=== PATIENT | male | born 1935 | race Caucasian/White ===

== ENCOUNTER 2022-10-19 08:48 | Inpatient (IN) | payer OTHER ==
[~2022-10-19] VITALS: Ht 165.1 cm; Wt 86.6 kg
--- NOTE | 2022-10-19 08:49 | NUR ---
PATIENT BIB [facility]. PATIENT BEGAN SLURRING SPEECH DURING PEDICURE & STAFF CALLED 911. PATIENT CURRENTLY HAS CLEAR SPEECH, DENIES HEADACHE. SBP >220 IN FIELD. MED HX DM, HTN, HLD, GOUT, ANEMIA. BP 217/123. BLOOD SUGAR 208. NKA.
[2022-10-19 08:52] VITALS: BP_SYST 255; PULSE 75; RESP 20; TEMP 98; O2SAT 96
--- NOTE | 2022-10-19 08:55 | NUR ---
DR CARLSON AT BEDSIDE
[2022-10-19] MEDS ORDERED: iohexoL 350 mgI/mL, 100 ML INFUS..BTL IV ONE (09:14)
[2022-10-19] MEDS ORDERED: hydrALAZINE HCL 20 MG/ML VIAL IVP ONE (09:15)
[2022-10-19 09:50] LABS: BASOPHILS % (AUTO) 0.8 % (0.0-2.0); EOSINOPHILS # (AUTO) 0.3 K/uL (0.0-0.4); EOSINOPHILS % (AUTO) 4.6 % (0.0-4.0); HEMOGLOBIN 12.6 g/dL (14.0-18.0); LYMPHOCYTES # (AUTO) 1.6 K/uL (1.0-5.5); LYMPHOCYTES % (AUTO) 26.8 % (20.5-51.5); MEAN CORPUSCULAR HEMOGLOBIN 32 pg (27-31); MEAN CORPUSCULAR HGB CONC 35 % (32-36); MEAN CORPUSCULAR VOLUME 90 fL (79.0-98.0); MONOCYTES # (AUTO) 0.4 K/uL (0.0-1.0); MONOCYTES % (AUTO) 7.2 % (1.7-9.3); NEUTROPHILS # (AUTO) 3.7 K/uL (1.8-7.7); NEUTROPHILS % (AUTO) 60.6 % (40.0-70.0); PLATELET COUNT (AUTO) 148 K/uL (130-430); RED CELL DISTRIBUTION WIDTH 13.1 % (9.0-15.0); WHITE BLOOD COUNT (AUTO) 6.1 K/uL (4.8-10.8)
[2022-10-19 10:00] LABS: ALBUMIN 3.4 g/dL (3.4-4.8); ANION GAP 6 (5-15); ASPARTATE AMINOTRANSFERASE 11 U/L (10-37); CALCIUM 8.6 mg/dL (8.4-11.0); CHLORIDE 99 mmol/L (98-107); GLUCOSE 152 mg/dL (70-99); PROTHROMBIN TIME 10.6 SECS (9.5-12.5); TOTAL BILIRUBIN 0.5 mg/dL (0.0-1.0); UREA NITROGEN, BLOOD 26 mg/dL (8-21)
--- NOTE | 2022-10-19 10:10 | NUR ---
MEDS GIVEN PER MD ORDER. BP HAS DECREASED TO 179/88
[2022-10-19 10:23] LABS: BILIRUBIN,URINE NEGATIVE (NEGATIVE); CLARITY/URINE CLEAR (CLEAR); COLOR,URINE YELLOW (YELLOW); GLUCOSE,URINE TRACE (NEGATIVE); KETONES,URINE NEGATIVE (NEGATIVE); LEUKOCYTE ESTERASE ,URINE NEGATIVE (NEGATIVE); NITRITE, URINE NEGATIVE (NEGATIVE); PROTEIN URINE 2+ (NEGATIVE); UROBILINOGEN,URINE 0.2 (0.2-1.0)
[2022-10-19 10:28] LABS: BLOOD, URINE TRACE (NEGATIVE)
[2022-10-19 10:38] LABS: BACTERIA,URINE None Seen /HPF (None Seen); WBC,URINE NONE SEEN /HPF (0-3)
[2022-10-19 10:44] LABS: BARBITURATE, URINE NEGATIVE (NEG <=200); BENZODIAZEPINE, URINE NEGATIVE (NEG <=150); CANNABINOID, URINE NEGATIVE (NEG <=50); COCAINE, URINE NEGATIVE (NEG <=150); METHAMPHETAMINES SCREEN,URINE NEGATIVE (NEG <=500); OPIATE, URINE NEGATIVE (NEG <=100); PHENCYCLIDINE SCREEN,URINE NEGATIVE (NEG <=25); UR TRICYCLIC ANTIDEPRESSANTS NEGATIVE (NEG <=300); URINE AMPHETAMINE NEGATIVE (NEG <=500); URINE METHADONE NEGATIVE (NEG <=200); URINE OXYCODONE SCREEN NEGATIVE (NEG <=100); URINE PROPOXYPHENE SCREEN NEGATIVE (NEG <=300)
[2022-10-19 11:12] LABS: ALANINE AMINOTRANSFERASE 4 U/L (12-78)
[2022-10-19] MEDS ORDERED: ASPIRIN 81 MG TAB.CHEW PO ONE (11:15)
[2022-10-19] MEDS ORDERED: cloNIDine HCL 0.1 MG TABLET PO ONE ×2 (11:15→11:30)
[2022-10-19] MEDS ORDERED: LORazepam 2 MG/ML VIAL IVP ONE (11:15)
[2022-10-19 11:22] LABS: CHOLESTEROL 133 mg/dL (<200)
[2022-10-19] MEDS ORDERED: ASPIRIN 81 MG TAB.CHEW ONE (11:24)
[2022-10-19] MEDS ORDERED: cloNIDine HCL 0.1 MG TABLET ONE (11:34)
--- NOTE | 2022-10-19 12:41 | NUR ---
Admit bed requested Patient will be admitted to care of . Admitted to TELEMETRY unit. Diagnosis TIA Inpatient (Yes or No) y Observation (Yes or No) n Orientation concerns or request close to nursing station (Yes or No) n Covid Status N/A On vent or bipap N Isolation requirements N Needs a sitter N From Home (Yes or if No enter name of facility) Y Requires Dialysis (Yes or No) N Med Rec Completed (Yes of No) Y
[2022-10-19] MEDS ORDERED: SIMV-345 PO (12:52)
[2022-10-19] MEDS ORDERED: HYDR50TA4 PO (12:52)
[2022-10-19] MEDS ORDERED: ALEN70TA27 PO (12:52)
[2022-10-19] MEDS ORDERED: LEVO75TA7 PO (12:52)
[2022-10-19] MEDS ORDERED: DITXL5 PO (12:52)
[2022-10-19] MEDS ORDERED: METF-1069 PO (12:52)
[2022-10-19] MEDS ORDERED: GLIP10TA21 PO (12:52)
[2022-10-19] MEDS ORDERED: ASA81 PO (12:52)
[2022-10-19] MEDS ORDERED: ALLO100T PO (12:52)
[2022-10-19] MEDS ORDERED: BENA40TA89 PO (12:52)
--- NOTE | 2022-10-19 13:30 | NUR ---
PATIENT WAS TAKEN TO TELEMETRY UNIT, ROOM 103A. WAS ASSISTED TO MOVE TO BED. REPORT WAS GIVEN TO SCOTT YOST AT BEDSIDE. PATIENT IN STABLE CONDITION AT TIME OF ADMIT TO TELE UNIT. BELONGINGS TO BE TAKEN HOME WITH DAUGHTER. MED REC COMPLETED PRIOR TO ADMIT.
--- NOTE | 2022-10-19 13:30 | NUR ---
ADMISSION NOTE Received patient from ER via gurney. Patient admitted with diagnosis of TIA. Patient is awake, alert, oriented X 4. Patient oriented to hospital room, call light, toileting, pain management and safety-teach back done. Pt denies any pain at this time, skin intact, Periph IV on the left AC intact , flushes well. Personal belongings checked, pt only had cellphone.Daughter at bedside, Call light within reach.
[2022-10-19 13:45] VITALS: BP_SYST 132; PULSE 76; RESP 18; TEMP 97.5; O2SAT 95
--- NOTE | 2022-10-19 13:47 | NUR ---
CONSULT NEUROLOGY TIA MICHAEL GALLO SENT A TEXT MESSAGE TO DR RONDON
--- NOTE | 2022-10-19 13:49 | NUR ---
CONSULTATION PAGED REASON FOR CONSULTATION:TIA WAS CONSULT CALLED? Y PERSON WHO WAS NOTIFIED:CARMEN COX CONSULTING PHYSICIAN: CARMEN ROMERO [employer] SPECIALTY: [facility] PHONE NUMBER:[phone] REQUESTING PHYSICIAN: DOROTHY ROMERO
--- NOTE | 2022-10-19 14:00 | NUR ---
Pt assisted to the bathroom, vital signs taken earlier and within normal limit. Pt voided well, urinal at bedside, Educated pt on the need to use the urinal to prevent fall.
--- NOTE | 2022-10-19 14:35 | NUR ---
CONSULT NEPHROLOGY HUNTER PHIL LISA [phone] S/W GEOFFREY RAVI
[2022-10-19] MEDS ORDERED: INSULIN REGULAR, HUMAN 100 UNITS/ML, 3 ML VIAL (humuLIN R) SUBCUT PRN (16:00)
[2022-10-19] MEDS ORDERED: LORazepam 2 MG/ML VIAL IVP PRN (16:00)
[2022-10-19] MEDS ORDERED: NALOXONE HCL 0.4 MG/ML AMP (NARCAN) IVP PRN ×2 (16:00)
[2022-10-19] MEDS ORDERED: ONDANSETRON HCL 4 MG/2 ML VIAL IVP PRN (16:00)
[2022-10-19] MEDS ORDERED: HYDROcodone/ACETAMIN 5-325 MG TAB (NORCO/ VICODIN) PO PRN (16:00)
[2022-10-19] MEDS ORDERED: ALENDRONATE SODIUM 70 MG TABLET (FOSAMAX) PO SCH (16:00)
[2022-10-19] MEDS ORDERED: ACETAMINOPHEN 325 MG TABLET PO PRN ×2 (16:00→16:15)
[2022-10-19] MEDS ORDERED: HYDROcodone/ACETAMIN 10-325 MG TAB PO PRN (16:00)
--- NOTE | 2022-10-19 16:32 | NUR ---
DTR WANTS TO SPEAK WITH (NEURO)
[2022-10-19 17:00] VITALS: BP_SYST 170; PULSE 63; RESP 20; TEMP 98; O2SAT 98
--- NOTE | 2022-10-19 18:10 | NUR ---
>>>PT NOTES<<< PATIENT/FAMILY PREFERRED NOT TO PARTICIPATE WITH PHYSICAL THERAPY EVAL TODAY. STATES HE STILL DROWSY FROM MEDICATIONS HE HAS TAKEN. WILL FOLLOW UP TOMORROW, Tuesday10/20/22.
--- NOTE | 2022-10-19 18:22 | NUR ---
ASKED YAN QUIÑONES TO PAGE Rangel ROMERO FOR PTS' INCREASED BP
[2022-10-19] MEDS: metFORMIN HCL 500 MG TABLET PO SCH (18:49)
--- NOTE | 2022-10-19 19:15 | NUR ---
CLOSING NOTE; PT RESTING IN BED, BREATHING NON-LABORED AND EVEN ON ROOM AIR. FAMILY MEMBERS AT BEDSIDE. IV S/L REMAIN INTACT AND PATENT. BED IS LOCKED AND AT LOW POSITION. CALL LIGHT WITHIN REACH. NO C/O PAIN OR DISCOMFORT AT THIS TIME. AWAITING Rangel BOLTON TO CALL BACK. ENDORSED CARE TO PHONE OPERATOR NURSE.
--- NOTE | 2022-10-19 19:37 | NUR ---
RECEIVED PT LYING IN BED, NO DISTRESS NOTED, DENIES PAIN. AAOX4, O2 SAT 96% ON RA, SPEECH IS CLEAR, DENIES NUMBNESS, TINGLING, NO PARALYSIS NOTED IN THE FACE OR EXTREMITIES. SALINE LOCK TO LT AC CDI. NO SKIN INJURY NOTES. Addendum: 10/19/22 at 2038 by [facility], SCOTT CHAVEZ PT AND PT'S FAMILY REFUSED INSULIN. EDUCATED ON REASON FOR INSULIN, HOWEVER DESPITE EDUCATION DOES NOT WANT INSULIN.
[2022-10-19 20:00] VITALS: BP_SYST 185; PULSE 60; RESP 16; TEMP 98.1; O2SAT 96
[2022-10-19] MEDS ORDERED: lisinopriL 20 MG TABLET PO SCH (21:00)
[2022-10-19] MEDS ORDERED: SIMVASTATIN 40 MG TABLET PO SCH (21:00)
[2022-10-19] MEDS ORDERED: glipiZIDE XL 5 MG TAB ( GLUCOTROL XL) PO SCH (21:00)
[2022-10-19] MEDS: NORMAL SALINE 5 ML DISP.SYRIN IVF SCH (22:54)
[2022-10-20] VITALS: BP_SYST 141; PULSE 56; RESP 17; TEMP 96.7; O2SAT 97
[2022-10-20 05:45] LABS: BASOPHILS % (AUTO) 0.5 % (0.0-2.0); EOSINOPHILS # (AUTO) 0.3 K/uL (0.0-0.4); EOSINOPHILS % (AUTO) 4.2 % (0.0-4.0); HEMATOCRIT 36.4 % (36-54); HEMOGLOBIN 12.9 g/dL (14.0-18.0); MEAN CORPUSCULAR HEMOGLOBIN 32 pg (27-31); MEAN CORPUSCULAR HGB CONC 36 % (32-36); MEAN CORPUSCULAR VOLUME 90 fL (79.0-98.0); MONOCYTES # (AUTO) 0.6 K/uL (0.0-1.0); MONOCYTES % (AUTO) 7.4 % (1.7-9.3); NEUTROPHILS # (AUTO) 4.7 K/uL (1.8-7.7); NEUTROPHILS % (AUTO) 61.9 % (40.0-70.0); PLATELET COUNT (AUTO) 156 K/uL (130-430); RED BLOOD CELL COUNT(AUTO) 4.05 MIL/uL (4.2-6.2); RED CELL DISTRIBUTION WIDTH 13.5 % (9.0-15.0); WHITE BLOOD COUNT (AUTO) 7.6 K/uL (4.8-10.8)
[2022-10-20] MEDS: NORMAL SALINE 5 ML DISP.SYRIN IVF SCH ×2 (05:49→14:08)
[2022-10-20 06:06] LABS: ALANINE AMINOTRANSFERASE 16 U/L (12-78); ALBUMIN 3.3 g/dL (3.4-4.8); ANION GAP 8 (5-15); ASPARTATE AMINOTRANSFERASE 13 U/L (10-37); CALCIUM 8.8 mg/dL (8.4-11.0); CHLORIDE 100 mmol/L (98-107); GLUCOSE 80 mg/dL (70-99); TOTAL BILIRUBIN 0.5 mg/dL (0.0-1.0); UREA NITROGEN, BLOOD 32 mg/dL (8-21)
--- NOTE | 2022-10-20 07:30 | NUR ---
OPENING NOTE; PT RESTING IN BED, DTR AT BEDSIDE. BREATHING NON-LABORED AND EVEN. DENIES ANY PAIN OR DISCOMFORT. IV S/L REMAIN INTACT AND PATENT. NO IV INFILTRATION OR INFECTION NOTED. BED IS LOCKED AND AT LOW POSITION. SAFETY PRECAUTION IN PLACE.ENCOURAGED PT TO USE CALL LIGHT FOR ASSISTANCE. WILL CONT TO MONITOR FOR ANY CHANGES
--- NOTE | 2022-10-20 07:45 | NUR ---
ROUND; AT BEDSIDE, ASSESSING PT. SPEAKING WITH PT AND DTR AT BEDSIDE.
[2022-10-20 08:00] VITALS: BP_SYST 170; PULSE 66; RESP 18; TEMP 97.9; O2SAT 95
[2022-10-20] MEDS: metFORMIN HCL 500 MG TABLET PO SCH (08:09)
[2022-10-20 08:53] VITALS: O2SAT 95
[2022-10-20] MEDS ORDERED: ALLOPURINOL 100 MG TABLET (ZYLOPRIM) PO SCH (09:00)
[2022-10-20] MEDS ORDERED: ASPIRIN 81 MG TAB.CHEW PO SCH (09:00)
[2022-10-20] MEDS ORDERED: LEVOTHYROXINE SODIUM 0.075 MG TABLET PO SCH (09:00)
[2022-10-20] MEDS ORDERED: HYDROCHLOROTHIAZIDE 25 MG TABLET (HCTZ) PO SCH (09:00)
[2022-10-20] MEDS ORDERED: oxyBUTYnin chloride 5 MG TABLET PO SCH (09:00)
--- NOTE | 2022-10-20 09:00 | NUR ---
CM met with patient at bedside. He is ambulatory without AD. A/ox3; forgetful to fine details. Daughter at bedside. Patient lives alone.Son and daughter come by to check on him. Patient unable to verbalize safe medication administration nor his diabetes management. Per daughter he forgets to eat his regular meals. His son comes by to set up his medications.Patient needs education on S&S of hypotension, hypoglycemia and a mail order sorter referral. DCP home with family Patient and family agreeable to RN for safety eval and disease management
[2022-10-20] MEDS ORDERED: POTASSIUM CHLORIDE 20 MEQ TAB.PRT.SR PO ONE ×2 (10:30→12:15)
--- NOTE | 2022-10-20 10:39 | NUR ---
CM reached out to Dr Agarwal for DC plan for order
[2022-10-20 10:40] LABS: CHOLESTEROL 127 mg/dL (<200); HDL CHOLESTEROL 60 mg/dL (>45); TRIGLYCERIDES 160 mg/dL (30-150)
--- NOTE | 2022-10-20 11:35 | NUR ---
ECHO WAS DONE AT BEDSIDE
[2022-10-20] MEDS ORDERED: amLODIPine BESYLATE 5 MG TABLET PO ONE (11:45)
[2022-10-20] MEDS ORDERED: MAGNESIUM SULFATE 50 ML IV ONE (12:15)
[2022-10-20] MEDS ORDERED: MAGNESIUM OXIDE 400 MG TABLET PO ONE (12:30)
--- NOTE | 2022-10-20 12:33 | NUR ---
PAGED aKren GROSSMAN REGARDING K-DUR ORDER. K-DUR 40EMQ ALREADY ADMINISTERED TODAY ORDER BY DOROTHY ROMERO
--- NOTE | 2022-10-20 12:41 | NUR ---
SPOKE WITH Y, DO NOT GIVE ADDITIONAL K-DUR.
--- NOTE | 2022-10-20 13:54 | NUR ---
PT BP: 175/90 AFTER NORVASC 5MG. SPOKE WITH ,Y RECEIVED NEW ORDER.
[2022-10-20] MEDS ORDERED: hydrALAZINE HCL 20 MG/ML VIAL IVP PRN (14:00)
--- NOTE | 2022-10-20 14:15 | NUR ---
PT BP: 200/106 PRIOR TO HYDRALAZINE
--- NOTE | 2022-10-20 14:16 | NUR ---
HYDRALAZINE GIVEN ORDERED. WILL RECHECK THE BP
--- NOTE | 2022-10-20 14:53 | NUR ---
BP: 116/57, HR79. PT SITTING POSITION. DENIES ANY DIZZINESS OR PAIN. WILL CONT TO MONITOR FOR ANY CHANGES
[2022-10-20 14:55] VITALS: BP_SYST 116; PULSE 79; RESP 18; TEMP 97.8; O2SAT 98
--- NOTE | 2022-10-20 16:25 | NUR ---
NICHO spoke with Dr Agarwal regarding H&P; states it will take awhile to come through. CM to arrange HH as soon as the H&P comes through. placed discharge order; ok to discharge home. CM will follow up on HH arrangement in am
[2022-10-20 17:04] VITALS: BP_SYST 116; PULSE 79; RESP 18; TEMP 97.8; O2SAT 98
--- NOTE | 2022-10-20 17:55 | NUR ---
D/C Patient Patient given medication reconciliation form and D/C instructions. Exit Care provided. Patient verbalized understanding. MD discussed with patient the results and treatment provided. Escorted pt via wheelchair for discharge to home. Patient in stable condition, ID band removed. IV catheter removed, intact and dressing applied, no active bleeding. Patient educated on pain management. All belongings sent with patient.
--- NOTE | 2022-10-21 08:21 | NUR ---
CM faxed referral for HH to [facility] f# [phone]
[2022-10-21] MEDS ORDERED: MAGNESIUM OXIDE 400 MG TABLET PO SCH (09:00)
--- NOTE | 2022-10-21 13:29 | NUR ---
[facility] accepted patient. They will reach out to the patient at home
== END 2022-10-20 18:06 | disposition home health service (06) | DRG 67 ==
LOC: SED 08:48 → STU 11:42 → SMU 10-20 16:12
PROVIDERS: ADMIT Specialist; ATTEND Preventive Medicine Preventive Medicine/Occupational Environmental Medicine
DX: I65.23 Occlusion and stenosis of bilateral carotid arteries (principal); I21.A1 Myocardial infarction type 2; E87.1 Hypo-osmolality and hyponatremia; I24.9 Acute ischemic heart disease, unspecified; I10 Essential (primary) hypertension; E11.65 Type 2 diabetes mellitus with hyperglycemia; E87.6 Hypokalemia; M47.812 Spondylosis without myelopathy or radiculopathy, cervical region; E83.42 Hypomagnesemia; E78.5 Hyperlipidemia, unspecified; E11.42 Type 2 diabetes mellitus with diabetic polyneuropathy; Z79.85 Long-term (current) use of injectable non-insulin antidiabetic drugs
CPT/HCPCS: 36415; 70450-TC; 70496; 70498; 71045; 76376; 80053; 80061; 80307; 81000; 82465; 83735; 84100; 84484; 85025; 85610-TC; 85730-TC; 86886; 86900; 86901; 93005; 93306; 97163-GP; 99285; G0378; J0360; J2060; J3475; J7060; Q9967